=== PATIENT | female | born 1995 | race Caucasian/White ===

== ENCOUNTER 2017-09-13 20:52 | Emergency (ER) | payer MEDICAID ==
[~2017-09-13] VITALS: Ht 162.6 cm; Wt 54.0 kg
[2017-09-13 20:58] VITALS: Ht 162.6 cm; Wt 54.0 kg
[2017-09-13 23:22] VITALS: BP 107/66
== END 2017-09-13 23:22 | disposition home or self-care (01) ==
LOC: ED 20:52
PROC: 3E023NZ Introduction of Analgesics, Hypnotics, Sedatives into Muscle, Percutaneous Approach (ICD-10-PCS; principal; 2017-09-13)
PROC: BW28ZZZ Computerized Tomography (CT Scan) of Head (ICD-10-PCS; 2017-09-13)
PROC: BR20ZZZ Computerized Tomography (CT Scan) of Cervical Spine (ICD-10-PCS; 2017-09-13)
DX: S16.1XXA Strain of muscle, fascia and tendon at neck level, initial encounter (principal); S41.002A Unspecified open wound of left shoulder, initial encounter; V48.5XXA Car driver injured in noncollision transport accident in traffic accident, initial encounter; Y92.411 Interstate highway as the place of occurrence of the external cause
CPT/HCPCS: J1885

== ENCOUNTER 2018-08-28 13:20 | Emergency (ER) | payer MEDICAID ==
[~2018-08-28] VITALS: Ht 162.6 cm; Wt 59.0 kg
[2018-08-28 13:40] VITALS: Ht 162.6 cm; Wt 59.0 kg
[2018-08-28 14:02] LABS: BASOPHIL % 0.3 % (0-2); PLATELET COUNT 199 x10^3mcL (130-400); RED CELL DISTRIBUTION WIDTH 13.3 % (11.5-14.5)
[2018-08-28 14:32] LABS: UA SPECIFIC GRAVITY 1.015 (1.005-1.035); microscopic required? YES; urine erythrocyte NEGATIVE (NEGATIVE)
[2018-08-28 14:44] LABS: CALCIUM 9.5 mg/dL (8.5-10.1); CARBON DIOXIDE 28.3 mmol/L (21-32); CHLORIDE SERUM 102 mmol/L (98-107); CREATININE SERUM 0.6 mg/dL (0.6-1.0); GFR1 > 60 mL/min; GLUCOSE SERUM 86 mg/dL (74-106); SODIUM SERUM 138 mmol/L (136-145)
[2018-08-28 14:49] LABS: ALBUMIN 4.4 g/dL (3.4-5.0); ALKALINE PHOSPHATASE 55 U/L (46-116); ALT/SGPT 20 U/L (14-59); AST/SGOT 15 U/L (15-37); BILIRUBIN TOTAL 1.2 mg/dL (0.20-1.00); TOTAL PROTEIN, SERUM 7.7 g/dL (6.4-8.2)
[2018-08-28 18:00] VITALS: BP 108/61
== END 2018-08-28 18:00 | disposition home or self-care (01) ==
LOC: ED 13:20
PROVIDERS: Emergency Medicine
DX: O23.41 Unspecified infection of urinary tract in pregnancy, first trimester (principal); O43.891 Other placental disorders, first trimester; Z3A.01 Less than 8 weeks gestation of pregnancy
CPT/HCPCS: J0696; J7030

== ENCOUNTER 2019-03-31 01:43 | Emergency (ER) | payer MEDICAID ==
[~2019-03-31] VITALS: Ht 165.1 cm; Wt 64.2 kg
[2019-03-31 01:57] VITALS: BP 116/69; Ht 165.1 cm; Wt 64.2 kg
== END 2019-03-31 04:11 | disposition left against medical advice (07) ==
LOC: ED 01:43
DX: Z53.21 Procedure and treatment not carried out due to patient leaving prior to being seen by health care provider (principal)
CPT/HCPCS: 87804